=== PATIENT | female | born 1995 | race Caucasian/White ===

== ENCOUNTER 2017-03-09 14:58 | Emergency (ER) | payer OTHER ==
[~2017-03-09] VITALS: Ht 177.8 cm; Wt 71.0 kg
[2017-03-09 15:10] VITALS: BP 119/74
[2017-03-09] MEDS: KETOROLAC 30 MG/ML VIAL IM ONE (16:06)
[2017-03-09 16:22] VITALS: BP 119/74
[2017-03-09 16:43] LABS: APPEARANCE,URINE CLEAR (CLEAR); BILIRUBIN,URINE NEGATIVE (NEGATIVE); BLOOD, URINE NEGATIVE (NEGATIVE); COLOR,URINE YELLOW (YELLOW); LEUKOCYTE ESTERASE ,URINE NEGATIVE (NEGATIVE); NITRITE, URINE NEGATIVE (NEGATIVE); UGLUCOSE NEGATIVE (NEGATIVE)
== END 2017-03-09 16:28 | disposition left against medical advice (07) ==
LOC: MED 14:58
DX: R10.11 Right upper quadrant pain (principal); F17.210 Nicotine dependence, cigarettes, uncomplicated
CPT/HCPCS: 81003; 81025; 96372; 99283; J1885

== ENCOUNTER 2021-02-10 21:54 | Emergency (ER) | payer OTHER ==
[~2021-02-10] VITALS: Ht 175.3 cm; Wt 97.5 kg
[2021-02-10 22:00] VITALS: BP 100/60
--- NOTE | 2021-02-10 22:03 | NUR ---
TO LOBBY A/W BED AMBULATORY
[2021-02-11 00:25] VITALS: BP 112/73
--- NOTE | 2021-02-11 00:30 | NUR ---
seen and examined by MELLO with orders, carried out.
--- NOTE | 2021-02-11 00:39 | NUR ---
PT TAKEN TO XRAY
--- NOTE | 2021-02-11 02:20 | NUR ---
ALL RESULTS BACK AND NOTED BY ERMD AND FOR D/C
[2021-02-11] MEDS ORDERED: CYCL10TA33 PO (02:22)
[2021-02-11] MEDS ORDERED: IBUP-2218 PO (02:22)
--- NOTE | 2021-02-11 02:30 | NUR ---
Patient discharged with v/s stable. Written and verbal after care instructions given and explained. Patient alert, oriented and verbalized understanding of instructions. Ambulatory with steady gait. All questions addressed prior to discharge. ID band removed. Patient advised to follow up with PMD. Rx of ibuprofrn, cyclobenzaprine given. Patient educated on indication of medication including possible reaction and side effects. Opportunity to ask questions provided and answered.
== END 2021-02-11 02:30 | disposition home or self-care (01) ==
LOC: MED 21:54
DX: M54.2 Cervicalgia (principal); M25.512 Pain in left shoulder; M79.671 Pain in right foot; M25.561 Pain in right knee; Z79.899 Other long term (current) drug therapy; V89.2XXA Person injured in unspecified motor-vehicle accident, traffic, initial encounter; Y93.89 Activity, other specified; Y92.89 Other specified places as the place of occurrence of the external cause; Y99.8 Other external cause status
CPT/HCPCS: 72050; 73030; 73562; 73630; 99284